=== PATIENT | female | born 2000 | race Caucasian/White ===

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

== ENCOUNTER → 2020-09-30 07:54 | Outpatient (CLI) | payer OTHER, SELFPAY ==
[2020-09-30] MEDS: COVID-19 VACC #1, MRNA(MOD) 100 MCG/0.5 ML VIAL IM (08:04)
== END ==
PROVIDERS: PCP Obstetrics & Gynecology; Visit Provider Internal Medicine
DX: Z23 Encounter for immunization (principal)
CPT/HCPCS: 0011A; 91301

== ENCOUNTER → 2020-11-04 08:11 | Outpatient (CLI) | payer OTHER, SELFPAY ==
[2020-11-04] MEDS: COVID-19 VACC #2, MRNA(MOD) 100 MCG/0.5 ML VIAL IM (08:20)
== END ==
PROVIDERS: PCP Obstetrics & Gynecology; Visit Provider Internal Medicine
DX: Z23 Encounter for immunization (principal)
CPT/HCPCS: 0012A; 91301